=== PATIENT | female | born 1965 | race Caucasian/White ===

== ENCOUNTER 2018-11-16 09:58 | Emergency (ER) | payer MEDICAID ==
[~2018-11-16] VITALS: Ht 165.1 cm; Wt 81.6 kg
--- NOTE | 2018-11-16 10:19 | NUR ---
PT A/OX4, PRESENTS TO THE ER C/O LOWER BACK, L SHOULDER, AND ANTERIOR CHEST WALL PAIN THAT STARTED POST GLF 25 MIN DO[facility] [facility]. PT DENIES HEAD INJURY/KO. PT STATES SHE SLIPPED AND FELL. PAIN IS UNPROVOKED, ACHING IN QUALITY, DOES NOT RADIATE, 10/10, CONSTANT. VSS. PT DENIES SOB, N/V/D, DIZZINESS, HEADACHE.
--- NOTE | 2018-11-16 10:43 | NUR ---
JORGE ORTIZ AT BEDSIDE FOR MSE.
--- NOTE | 2018-11-16 10:52 | NUR ---
TUTORING MANAGER AT BEDSIDE.
[2018-11-16] MEDS ORDERED: ONDANSETRON 4 MG/2 ML VIAL IM ONE (11:00)
[2018-11-16] MEDS ORDERED: IBUPROFEN 800 MG TABLET PO ONE (11:00)
[2018-11-16] MEDS ORDERED: MORPHINE SULFATE 4 MG/1 ML DISP.SYRIN IM ONE (11:00)
--- NOTE | 2018-11-16 11:00 | NUR ---
PT TAKEN TO RADIOLOGY FOR CT SCAN.
--- NOTE | 2018-11-16 11:14 | NUR ---
PT BACK IN ER FROM RADIOLOGY.
[2018-11-16] MEDS ORDERED: IBUPROFEN 800 MG TABLET ONE (11:17)
[2018-11-16] MEDS ORDERED: MORPHINE SULFATE 4 MG/1 ML DISP.SYRIN ONE (11:17)
[2018-11-16] MEDS ORDERED: ONDANSETRON 4 MG/2 ML VIAL ONE (11:17)
[2018-11-16] MEDS ORDERED: KETOROLAC TROMETHAMINE 30 MG INJ ONE (11:20)
[2018-11-16] MEDS ORDERED: KETOROLAC TROMETHAMINE 30 MG INJ IM ONE (11:30)
--- NOTE | 2018-11-16 11:41 | NUR ---
JORGE ORTIZ AT BEDSIDE FOR PT UPDATE.
--- NOTE | 2018-11-16 11:50 | NUR ---
Patient discharged to home in stable conditon. Written and verbal after care instructions given. Patient verbalizes understanding of instructions. PT D/C/ W/ PRESCRIPTIONS. ALL BELONGINGS W/ PT. PT SELF-AMBULATED W/O DIFFICULTY. PT WILL BE DRIVEN HOME BY DAUGHTER IN PRIVATE VEHICLE.
[2018-11-16 11:52] VITALS: BP 133/82
== END 2018-11-16 11:53 | disposition home or self-care (01) ==
LOC: ER 09:58
DX: S13.4XXA Sprain of ligaments of cervical spine, initial encounter (principal); S33.5XXA Sprain of ligaments of lumbar spine, initial encounter; S49.91XA Unspecified injury of right shoulder and upper arm, initial encounter; W01.0XXA Fall on same level from slipping, tripping and stumbling without subsequent striking against object, initial encounter; Y93.89 Activity, other specified; Y92.89 Other specified places as the place of occurrence of the external cause; Y99.8 Other external cause status
CPT/HCPCS: 72125; 73030; 96372; 99284; J1885; A4663; J2270; J2405

== ENCOUNTER 2018-12-19 23:52 | Emergency (ER) | payer MEDICAID ==
[~2018-12-19] VITALS: Ht 157.5 cm; Wt 68.9 kg
[2018-12-20] MEDS ORDERED: ACET-2605 PO (00:34)
--- NOTE | 2018-12-20 00:42 | NUR ---
Pt ambulates to ER with c/o right lower extremity pain x 1 week. Pt states that a trash bag hit her leg. No acute injury noted. Daughter at bedside.
--- NOTE | 2018-12-20 01:22 | NUR ---
Dr. Alfaro, , at bedside to evaluate pt.
[2018-12-20 02:38] VITALS: BP 112/66
--- NOTE | 2018-12-20 02:38 | NUR ---
Patient discharged to home in stable conditon. Written and verbal after care instructions given. Patient verbalizes understanding of instructions. Pt left ER with steady gait with daughter. All belongings with pt. VSS. NAD noted.
== END 2018-12-20 02:39 | disposition home or self-care (01) ==
LOC: ER 23:53
DX: S80.11XA Contusion of right lower leg, initial encounter (principal); Z79.899 Other long term (current) drug therapy; W20.8XXA Other cause of strike by thrown, projected or falling object, initial encounter; Y93.89 Activity, other specified; Y92.89 Other specified places as the place of occurrence of the external cause; Y99.8 Other external cause status
CPT/HCPCS: 73590; A4663

== ENCOUNTER 2019-07-10 12:08 | Emergency (ER) | payer MEDICAID ==
[~2019-07-10] VITALS: Ht 160 cm; Wt 65.8 kg
[~2019-07-10 12:08] MED LIST: ACET-2605 PO
--- NOTE | 2019-07-10 12:10 | NUR ---
at bedside, utilized plant nursery worker for information.
--- NOTE | 2019-07-10 12:22 | NUR ---
Prescription given to patient, along with discharge instructions.
[2019-07-10 12:26] VITALS: BP 142/88
== END 2019-07-10 12:23 | disposition home or self-care (01) ==
LOC: ER 12:12
DX: J06.9 Acute upper respiratory infection, unspecified (principal); Z79.899 Other long term (current) drug therapy
CPT/HCPCS: A4663

== ENCOUNTER 2019-08-13 23:25 | Emergency (ER) | payer MEDICAID ==
[~2019-08-13] VITALS: Ht 160 cm; Wt 65.8 kg
[2019-08-14] MEDS ORDERED: HYDROCODONE/APAP 10-325 MG TABLET PO ONE
[2019-08-14] MEDS ORDERED: ONDANSETRON ODT 4 MG TAB.RAPDIS SL ONE
[2019-08-14] MEDS ORDERED: ONDANSETRON ODT 4 MG TAB.RAPDIS ONE (00:11)
[2019-08-14] MEDS ORDERED: HYDROCODONE/APAP 10-325 MG TABLET ONE (00:12)
--- NOTE | 2019-08-14 01:12 | NUR ---
Patient discharged to home in stable conditon. Written and verbal after care instructions given. Patient verbalizes understanding of instructions. AMBULATORY WITH ANTALGIC GAIT ALL BELONGINGS W/ PT VERBALIZED UNDERSTANDING SHE WILL NOT DRIVE
[2019-08-14 01:18] VITALS: BP 135/88
== END 2019-08-14 01:19 | disposition home or self-care (01) ==
LOC: ER 23:28
DX: S70.02XA Contusion of left hip, initial encounter (principal); S70.01XA Contusion of right hip, initial encounter; S33.5XXA Sprain of ligaments of lumbar spine, initial encounter; Z79.899 Other long term (current) drug therapy; W10.9XXA Fall (on) (from) unspecified stairs and steps, initial encounter; Y93.89 Activity, other specified; Y92.89 Other specified places as the place of occurrence of the external cause; Y99.8 Other external cause status
CPT/HCPCS: 72110; 72170; 73502; A4663; Q0162

== ENCOUNTER 2019-10-21 04:48 | Emergency (ER) | payer MEDICAID ==
[~2019-10-21] VITALS: Ht 157.5 cm; Wt 69.9 kg
[2019-10-21] MEDS ORDERED: IBUP-23 PO (04:57)
[2019-10-21] MEDS ORDERED: PENICILLIN VK 500 MG (04:57)
--- NOTE | 2019-10-21 04:59 | NUR ---
Leonel shannon in ED - 10/21/19 at 0519 by [id number] Called [facility] and spoke to Valery little. No beds available until after 0900 AM today. Will fax facesheet and clinical to as requested.
--- NOTE | 2019-10-21 05:10 | NUR ---
Patient ambulating with steady gait. A&O x4. Irish only speaker. Daughter at bedside able to translate. c/o abd pain that started at midnight. sudden onset per pt. per pt pain does not radiate anywhere. Breathing even and unlabored. No SOB noted. Speech is clear and able to make needs known / follow commands. Denies any N / V / D. Patient noted with pink urine today in the ER. No prior episodes before per pt.
[2019-10-21] MEDS ORDERED: ONDANSETRON 4 MG/2 ML VIAL ONE ×2 (05:12→06:39)
[2019-10-21] MEDS ORDERED: HYDROMORPHONE 1 MG/1 ML DISP.SYRIN ONE (05:12)
[2019-10-21] MEDS ORDERED: HYDROMORPHONE 1 MG/1 ML DISP.SYRIN IV ONE (05:15)
[2019-10-21] MEDS ORDERED: IV NORMAL SALINE 1000 ML BAG IV ONE (05:15)
[2019-10-21] MEDS ORDERED: ONDANSETRON 4 MG/2 ML VIAL IV ONE ×2 (05:15→07:00)
[2019-10-21 05:24] LABS: BASOPHILS % (AUTO) 0.3 % (0.0-2.0); EOSINOPHILS # (AUTO) 0.1 K/uL (0.0-0.7); HEMATOCRIT 42.5 % (31.2-41.9); HEMOGLOBIN 14.1 g/dL (10.9-14.3); LYMPHOCYTES # (AUTO) 1.7 K/uL (20.0-40.0); LYMPHOCYTES % (AUTO) 19.8 % (20.5-51.5); MEAN CORPUSCULAR HEMOGLOBIN 28.8 uug (24.7-32.8); MEAN CORPUSCULAR HGB CONC 33 g/dL (32.3-35.6); MEAN CORPUSCULAR VOLUME 86.6 fL (75.5-95.3); MONOCYTES # (AUTO) 0.4 K/uL (2.0-10.0); MONOCYTES % (AUTO) 4.8 % (0.0-11.0); NEUTROPHILS # (AUTO) 6.4 K/uL (1.8-8.9); NEUTROPHILS % (AUTO) 74.1 % (38.5-71.5); PLATELET COUNT (AUTO) 282 K/uL (179-408); RED BLOOD CELL COUNT(AUTO) 4.91 MIL/uL (3.63-4.92); WHITE BLOOD COUNT (AUTO) 8.6 K/uL (3.8-11.8)
--- NOTE | 2019-10-21 05:25 | NUR ---
Dr. Wolf at bedside for MSE
[2019-10-21 05:28] LABS: *BLOOD, URINE 3+ (NEGATIVE); *CLARITY,URINE TURBID (CLEAR); *COLOR,URINE RED (YELLOW); *KETONES,URINE TRACE (NEGATIVE); LEUKOCYTE ESTERASE ,URINE 3+ (NEGATIVE); NITRITE, URINE NEGATIVE (NEGATIVE); UGLUCOSE NEGATIVE (NEGATIVE)
[2019-10-21 05:33] LABS: CREATININE 0.8 mg/dL (0.6-1.3); POTASSIUM 4.1 mmol/L (3.5-5.1)
[2019-10-21 05:39] LABS: *BILIRUBIN,URIN 2+ (NEGATIVE); *URINE HCG, QUAL NEGATIVE (NEGATIVE)
[2019-10-21 05:39] LABS: BILIRUBIN,DIRECT 0.1 mg/dL (0.0-0.2); BILIRUBIN,TOTAL 0.3 mg/dL (0.2-1.0); TOTAL PROTEIN, SERUM 8.1 g/dL (6.4-8.2)
[2019-10-21 05:40] LABS: BACTERIA,URINE NONE SEEN /HPF (NONE SEEN); RBC,URINE TNTC /HPF (0-3); SQUAMOUS EPITHELIAL CELL,UR NONE SEEN /HPF (NONE SEEN)
[2019-10-21] MEDS ORDERED: SWABABLE VALVE TRANSFER SET EA MC ONE (05:49)
[2019-10-21] MEDS ORDERED: IV NORMAL SALINE 250 ML IV ONE (05:49)
[2019-10-21] MEDS ORDERED: IOHEXOL 300MG/ML 100 ML INFUS..BTL ONE ×2 (05:49→06:13)
--- NOTE | 2019-10-21 05:58 | NUR ---
Patient taken to CT scan
--- NOTE | 2019-10-21 06:37 | NUR ---
Patient back from CT scan
--- NOTE | 2019-10-21 06:44 | NUR ---
Ultrasound at bedside
--- NOTE | 2019-10-21 07:41 | NUR ---
PT WAS D/C'd TO HOME. D/C INSTRUCTIONS GIVEN TO THE PT. PT DENIES PAIN. NO SOB. NO N/V.
[2019-10-21 07:43] VITALS: BP 131/75
== END 2019-10-21 07:44 | disposition home or self-care (01) ==
LOC: ER 04:56
DX: R10.31 Right lower quadrant pain (principal); Z88.0 Allergy status to penicillin; Z88.8 Allergy status to other drugs, medicaments and biological substances
CPT/HCPCS: 36415; 74178; 76856; 80048; 80076; 81000; 81001; 83690; 84703; 85025; 87086; 96374; 96375; 96376; 99284; J1170; J2405 ×2; Q9967 ×2; A4663; J7030; J7050

== ENCOUNTER 2019-12-01 17:42 | Emergency (ER) | payer MEDICAID ==
[~2019-12-01] VITALS: Ht 160 cm; Wt 74.8 kg
[~2019-12-01 17:42] MED LIST changes: +IBUP-23 PO; +PENICILLIN VK 500 MG
[2019-12-01] MEDS ORDERED: DEXAMETHASONE SOD PHOSPHATE 10 MG INJ ONE (18:59)
[2019-12-01] MEDS ORDERED: DEXAMETHASONE SOD PHOSPHATE 4 MG INJ IM ONE (19:00)
--- NOTE | 2019-12-01 19:07 | NUR ---
Patient discharged to home in stable conditon. Written and verbal after care instructions given. Patient verbalizes understanding of instructions. Pt given discharge instructions & signed paperwork. No acute distress noted. Vital signs stable.
[2019-12-01 19:08] VITALS: BP 128/77
== END 2019-12-01 19:09 | disposition home or self-care (01) ==
LOC: ER 17:44
DX: R51 Headache (principal); Z79.1 Long term (current) use of non-steroidal anti-inflammatories (NSAID); Z79.2 Long term (current) use of antibiotics; Z79.899 Other long term (current) drug therapy
CPT/HCPCS: 96372; 99283; J1100; A4663